=== PATIENT | female | born 1940 | race Caucasian/White ===

== ENCOUNTER 2018-01-21 12:47 | Inpatient (IN) | payer MEDICARE, BC ==
[~2018-01-21] VITALS: Ht 162.6 cm; Wt 59.9 kg
--- NOTE | ~2018-01-21 | HP ---
PATIENT: TALIA LOYOLA MEDICAL RECORD: [id number] ACCOUNT: [id number] LOCATION:D.MS [id number] : 44 ADMISSION DATE: 01/21/18 PCP: MOIRA ESPINOSA MD HISTORY AND PHYSICAL EXAMINATION REASON FOR ADMISSION: Shortness of breath and chest pain. HISTORY OF PRESENT ILLNESS: The patient is a 77-year-old female with long-standing history of smoking. She has been smoking less recently. She came to the office last week because of generalized cachexia; poor appetite; increasing shortness of breath with exertion; and dry cough, nonproductive. She was seen last 3 days ago. At that time, she was noted to have a creatinine of 3. Her chest x-ray showed moderate left-sided pleural effusion. She did not want to be hospitalized at that point and was told to hydrate through the weekend as her last creatinine was noted to be 1.5 years ago. She was scheduled for outpatient CT scan of her chest, but was weaker today and was admitted for further testing. She denies fever. She admits to poor appetite and gradual weight loss. PAST MEDICAL HISTORY: Anxiety, essential hypertension, history of herpes zoster, hyperlipidemia, hypothyroidism, GERD, dementia, nicotine addiction, and history of depression. PAST SURGICAL HISTORY: Appendectomy, laparoscopic cholecystectomy, and hysterectomy. She has had orthopedic surgery with bilateral knee ORIFs and on the right times 2, cervical discectomy, left olecranon fracture, lumbar discectomy for lumbar spinal stenosis, recent C6-C7 laminectomy for stenosis, synovial cyst removal, and bunionectomy. She had a left arm graft for crush injury remotely, bilateral cataract surgery, remote myocardial infarction, C6-C7 laminectomy, C5 to T2 posterolateral fusion, C6-7-T1 laminectomy, and synovial cyst removal. FAMILY HISTORY: Father at 73 with CAD. Mother at 73 with CAD and COPD. Brother with coronary artery disease and CABG. HOME MEDICATIONS: Levaquin 500 mg a day, day #5; Proventil HFA two puffs t.i.d. p.r.n. shortness of breath; Symbicort 160 two puffs b.i.d.; omeprazole 40 mg a day; vitamin B12, 1 cc IM monthly; Namenda 10 mg p.o. b.i.d.; famotidine 40 mg p.o. at bedtime; and Wellbutrin XL 150 mg p.o. b.i.d. REVIEW OF SYSTEMS: GENERAL: She has had gradual weight loss over the last year with poor appetite. No fever. HEENT: No new visual change, sinus congestion, or sore throat. RESPIRATORY: Dry cough, nonproductive, with pleuritic pain in her left chest with deep inspiration. No hemoptysis. CARDIAC: No exertional chest pain, claudication, or edema. GASTROINTESTINAL: No nausea, vomiting, swallowing difficulty, dysphagia, change in stools, or blood per rectum. GYNECOLOGIC: No vaginal bleeding. ENDOCRINE: Denies polyuria, polydipsia, heat or cold intolerance. NEUROLOGIC: No history of stroke, but has had declining memory of cognitive type. PSYCHIATRIC: Denies depressed mood. MUSCULOSKELETAL: She has chronic cervical and lumbar back pain. HISTORY AND PHYSICAL [id number] TALIA LOYOLA INTEGUMENT: No recent rash or itching. PHYSICAL EXAMINATION: VITAL SIGNS: Temperature 98.6 Fahrenheit, pulse 80 and regular, respirations are 20, and blood pressure 124/76 with a sat of 96.6% on room air. HEENT: Normocephalic. Eyes are clear with lens implants in both eyes. Sclerae are nonicteric. Palpebral conjunctivae are mildly pale. Oropharynx is unremarkable except for dry mucous membranes. NECK: Shows limited range of motion due to fusion. Minimal pain elicited. No carotid bruits or JVD. CHEST: She has E to A changes and dullness in the left posterior lower lobe. Faint wheeze in the right upper lobe on forced expiration. HEART: Regular rate without MGR. PMI appropriate. BREASTS: Show implants. ABDOMEN: Soft and nontender throughout. Bowel sounds are active. She is wearing a diaper. EXTREMITIES: She has scar over right knee. She has some crepitus in the left knee. No peripheral edema. LYMPH SYSTEM: No adenopathy palpable in the cervical chain, axillary or inguinal chain. NEUROLOGIC: Oriented to person and place, but not to time. Cranial nerves are grossly intact. Gait is somewhat wide based and she has weak quads bilaterally. No gross edema appreciated. INTEGUMENT: No petechia or icterus. LABORATORY DATA: She has white count of 7500 with neutrophil predominance of 82%. H&H is 10 and 28.9 respectively. Chemistry shows sodium of 126, potassium of 3.3, CO2 of 19.3, BUN 45, creatinine of 2.3. TSH is 0.92 and T4 is 8.6. Liver functions are pending. DIAGNOSTIC DATA: Chest x-ray shows large left pleural effusion. ASSESSMENT: 1. Left pleural effusion, concern for malignancy. 2. COPD with exacerbation. 3. Anemia. 4. Cachexia with weight loss. 5. Dementia. 6. Anemia, normocytic. 7. GERD. 8. History of nicotine addiction. PLAN: The patient will be admitted for hydration and correction of electrolyte abnormalities. I will discuss with radiology on CT with and without contrast tomorrow if creatinine is improved. Pulmonary updrafts and supplemental O2 as indicated. Anemia workup. TRANSINT:[id number] Voice Confirmation ID: [id number] DOCUMENT ID: [id number] HISTORY AND PHYSICAL [id number] TALIA LOYOLA TIMOTHY MD at 1705 CC: [id number] DICTATION DATE: 01/21/18 172 CHEF'S ASSISTANT: 01/21/18 1827 ADM IN [facility] [address] [place] [address]
--- NOTE | ~2018-01-21 | MORECARE ---
CASE MANAGEMENT DISCHARGE SUMMARY PATIENT: TALIA LOYOLA UNIT: [id number] ADM DATE: 01/21/18 AGE: 77 : 42 SEX: F ROOM/BED: D.2215 AUTHOR: ROSI SIFUENTES PHYSICIAN: REFERRING PHYSICIAN: MOIRA ESPINOSA MD DATE OF SERVICE: 02/05/18 Discharge Plan Patient Name: TALIA LOYOLA Facility: [facility]:[place] : 1940 Planned Disposition: Home Anticipated Discharge Date: Discharge Date: Expected LOS: Initial Reviewer: [email or web address] Initial Review Date: 01/21/2018 Generated: 02/05/18 2:34 pm Comments DCP- Discharge Planning Updated by [email or web address]: Leatha Nunn on 02/05/18 12:[address] spoke with health care proxy she stated that she would like her to go to the [facility] when she is ready to be discharged. MJ signed with [facility] DCP- Discharge Planning Updated by [id number]: Vanessa Peters on 02/01/18 11:[address] Spoke with Lani Diaz per request concerning discharge planning. She states that she would like patient to go to inpatient rehab at [facility]. States she would like her to be able to go back to her home after rehab (Lani lives across the street from her). Patient nods in agreement to inpatient rehab screen. CM will continue to follow and assist with discharge planning/needs. DCP- Discharge Planning Updated by [email or web address]: Leatha Nunn on 01/22/18 11:[address] Patient Name: TALIA LOYOLA Admission Status: Urgent Accout number: [id number] Admission Date: 01-21-2018 : 1940 Admission Diagnosis: Attending: MOIRA ESPINOSA Current LOS: 1 Anticipated DC Date: Planned Disposition: Home Primary Insurance: MEDICARE A & B Discharge Planning Comments: CM met with patient and healthcare proxy (Alyssa Diaz ) Patient has an apartment but is currently living with her neighbor Alyssa (who is a retired nurse) I asked patient multiple questions and she is pleasantly confused. She is unable to answer some of the questions. She has a cane, walker, shower chair at home. She does have a daughter who lives local, but Alyssa is the one who is her Health Care Proxy. Lani states that she is unable to stay by herself at this point. Alyssa helps her with medications and bathing. I spoke with the patient about inpatient rehab, skilled and home health. She will wait to see what the MD thinks she needs. CM will continue to follow and assist with DC planning as needed Process Engineer: Leatha Nunn DCPIA - Discharge Planning Initial Assessment Updated by [email or web address]: Leatha Nunn on 01/22/18 12:48 pm * Is the patient Alert and Oriented? Yes * How many steps to enter\exit or inside your home? * PCP ZIMBABWEAN * Pharmacy [facility] [address] * Preadmission Environment Other * Other Environment HOME, LIVING WITH A FRIEND RIGHT NOW ALYSSA DIAZ [phone] * ADLs Partial Dependent * Partial ADLs (Assistance needed) Bathing Medication Management * Equipment Cane Rolling Walker Shower Chair * List name and contact numbers for known caregivers / representatives who currently or will assist patient after discharge: ALYSSA DIAZ ([facility]) [phone] * Verbal permission to speak to the caregivers and representatives has been obtained from the patient. Yes * Community resources currently utilized None * Additional services required to return to the preadmission environment? Yes * Can the patient safely return to the preadmission environment? Yes * Has this patient been hospitalized within the prior 30 days at any hospital? No Last DP export: 02/01/18 11:45 Patient Name: TALIA LOYOLA Page [phone] at 1334 All edits/amendments must be made on the electronic document DICTATION DATE: 02/05/18 1334 SUPERVISOR DRIED YEAST: LOREN 02/05/18 1334 RPT#: [id number] DC DATE: STATUS: ADM IN [facility] [address] [place] [address] END OF REPORT
--- NOTE | ~2018-01-21 | MORECARE ---
CASE MANAGEMENT DISCHARGE SUMMARY PATIENT: TALIA LOYOLA UNIT: [id number] ADM DATE: 01/21/18 AGE: 77 : 42 SEX: F ROOM/BED: D.2215 AUTHOR: ROSI SIFUENTES PHYSICIAN: REFERRING PHYSICIAN: MOIRA ESPINOSA MD DATE OF SERVICE: 01/22/18 Discharge Plan Patient Name: TALAI LOYOLA Facility: [facility]:[place] : 1940 Planned Disposition: Home Anticipated Discharge Date: Discharge Date: Expected LOS: Initial Reviewer: [email or web address] Initial Review Date: 01/21/2018 Generated: 01/22/18 1:52 pm DCPIA - Discharge Planning Initial Assessment Updated by [email or web address]: Leatha Nunn on 01/22/18 12:48 pm * Is the patient Alert and Oriented? Yes * How many steps to enter\exit or inside your home? * PCP * Pharmacy [facility] [address] * Preadmission Environment Other * Other Environment HOME, LIVING WITH A FRIEND RIGHT NOW ALYSSA ARELLANO [phone] * ADLs Partial Dependent * Partial ADLs (Assistance needed) Bathing Medication Management * Equipment Cane Rolling Walker Shower Chair * List name and contact numbers for known caregivers / representatives who currently or will assist patient after discharge: ALYSSA ARELLANO ([facility]) [phone] * Verbal permission to speak to the caregivers and representatives has been obtained from the patient. Yes * Community resources currently utilized None * Additional services required to return to the preadmission environment? Yes * Can the patient safely return to the preadmission environment? Yes * Has this patient been hospitalized within the prior 30 days at any hospital? No Last DP export: 01/22/18 11:44 a Patient Name: TALIA LOYOLA Page [id number] at 1253 All edits/amendments must be made on the electronic document DICTATION DATE: 01/22/18 1252 CAMPER ASSEMBLER: LOREN 01/22/18 1252 RPT#: [id number] DC DATE: STATUS: ADM IN [facility] [address] [place] [address] END OF REPORT
--- NOTE | ~2018-01-21 | MORECARE ---
CASE MANAGEMENT DISCHARGE SUMMARY PATIENT: TALIA LOYOLA UNIT: [id number] ADM DATE: 01/21/18 AGE: 77 : 42 SEX: F ROOM/BED: D.2215 AUTHOR: ROSI SIFUENTES PHYSICIAN: REFERRING PHYSICIAN: MOIRA ESPINOSA MD DATE OF SERVICE: 02/08/18 Discharge Plan Patient Name: TALIA LOYOLA Facility: [facility]:[place] : 1940 Planned Disposition: Home Anticipated Discharge Date: Discharge Date: Expected LOS: Initial Reviewer: [email or web address] Initial Review Date: 01/21/2018 Generated: 02/08/18 12:15 pm Comments DCP- Discharge Planning Updated by [email or web address]: Vanessa Peters on 02/08/18 10:[address] I called [facility] and spoke to Stephen concerning usp placement, clinical faxed. I will follow up with Stephen concerning possible discharge today. CM will continue to follow and assist with discharge planning/needs. DCP- Discharge Planning Updated by [email or web address]: Leatha Nunn on 02/05/18 12:[address] spoke with health care proxy she stated that she would like her [place] [facility] [place] [facility] [place] she is ready to be discharged. MJ signed with [facility]- Discharge Planning Updated by [email or web address]: Vanessa Peters on 02/01/18 11:[address] Spoke with Lani Diaz per request concerning discharge planning. She states that she would like patient to go to inpatient rehab at [facility]. States she would like her to be able to go back to her home after rehab (Lani lives across the street from her). Patient nods in agreement to inpatient rehab screen. CM will continue to follow and assist with discharge planning/needs. DCP- Discharge Planning Updated by [email or web address]: Leatha Nunn on 01/22/18 11:[address] Patient Name: TALIA LOYOLA Admission Status: Urgent Accout number: [id number] Admission Date: 01-21-2018 : 1940 Admission Diagnosis: Attending: MOIRA ESPINOSA Current LOS: 1 Anticipated DC Date: Planned Disposition: Home Primary Insurance: MEDICARE A & B Discharge Planning Comments: CM met with patient and healthcare proxy (Alyssa Diaz ) Patient has an apartment but is currently living with her neighbor Alyssa (who is a retired nurse) I asked patient multiple questions and she is pleasantly confused. She is unable to answer some of the questions. She has a cane, walker, shower chair at home. She does have a daughter who lives local, but Alyssa is the one who is her Health Care Proxy. Lani states that she is unable to stay by herself at this point. Alyssa helps her with medications and bathing. I spoke with the patient about inpatient rehab, skilled and home health. She will wait to see what the MD thinks she needs. CM will continue to follow and assist with DC planning as needed Assistant Branch Operations Manager: Leatha Nunn DCPIA - Discharge Planning Initial Assessment Updated by [email or web address]: Leatha Nunn on 01/22/18 12:48 pm * Is the patient Alert and Oriented? Yes * How many steps to enter\exit or inside your home? * PCP KOREAN * Pharmacy [facility] * Preadmission Environment Other * Other Environment HOME, LIVING WITH A FRIEND RIGHT NOW ALYSSA DIAZ [phone] * ADLs Partial Dependent * Partial ADLs (Assistance needed) Bathing Medication Management * Equipment Cane Rolling Walker Shower Chair * List name and contact numbers for known caregivers / representatives who currently or will assist patient after discharge: ALYSSA DIAZ ([facility]) [phone] * Verbal permission to speak to the caregivers and representatives has been obtained from the patient. Yes * Community resources currently utilized None * Additional services required to return to the preadmission environment? Yes * Can the patient safely return to the preadmission environment? Yes * Has this patient been hospitalized within the prior 30 days at any hospital? No Last DP export: 02/05/18 12:41 Patient Name: TALIA LOYOLA Page 58088 at 1115 All edits/amendments must be made on the electronic document DICTATION DATE: 02/08/181113 PRODUCTION ENGINEER: LOREN 02/08/181113 RPT#: [id number] DC DATE: STATUS: ADM IN [facility] [address] [place] [address] END OF REPORT
--- NOTE | ~2018-01-21 | MORECARE ---
CASE MANAGEMENT DISCHARGE SUMMARY PATIENT: TALIA LOYOLA UNIT: [id number] ADM DATE: 01/21/18 AGE: 77 : 42 SEX: F ROOM/BED: D.2215 AUTHOR: ROSI SIFUENTES PHYSICIAN: REFERRING PHYSICIAN: MOIRA ESPINOSA MD DATE OF SERVICE: 02/08/18 Discharge Plan Patient Name: TALIA LOYOLA Facility: [facility]:[place] : 1940 Planned Disposition: Home Anticipated Discharge Date: Discharge Date: Expected LOS: Initial Reviewer: [email or web address] Initial Review Date: 01/21/2018 Generated: 02/08/18 1:01 pm Comments DCP- Discharge Planning Updated by [email or web address]: Vanessa Peters on 02/08/18 10:[address] I SPOKE WITH REBECCA DAVIES AT THE [facility][phone] AND FAXED CLINICAL TO [phone]. REBECCA STATES THEY ARE VERIFYING INSURANCE AT THIS TIME. CM WILL CONTINUE TO FOLLOW AND ASSIST WITH DISCHARGE PLANNING/NEEDS. DCP- Discharge Planning Updated by [email or web address]: Vanessa Peters on 02/08/18 10:[address] I called The [facility] and spoke to Stephen concerning intermediate placement, clinical faxed. I will follow up with Stephen concerning possible discharge today. CM will continue to follow and assist with discharge planning/needs. DCP- Discharge Planning Updated by [email or web address]: Leatha Nunn on 02/05/18 12:[address] spoke with health care proxy she stated that she would like her to go to the [facility] when she is ready to be discharged. MJ signed with [facility] DCP- Discharge Planning Updated by [email or web address]: Vanessa Peters on 02/01/18 11:[address] Spoke with Lani Diaz per request concerning discharge planning. She states that she would like patient to go to inpatient rehab at [facility]. States she would like her to be able to go back to her home after rehab (Lani lives across the street from her). Patient nods in agreement to inpatient rehab screen. CM will continue to follow and assist with discharge planning/needs. DCP- Discharge Planning Updated by [email or web address]: Leatha Nunn on 01/22/18 11:[address] Patient Name: TALIA LOYOLA Admission Status: Urgent Accout number: [id number] Admission Date: 01-21-2018 : 1940 Admission Diagnosis: Attending: MOIRA ESPINOSA Current LOS: 1 Anticipated DC Date: Planned Disposition: Home Primary Insurance: MEDICARE A & B Discharge Planning Comments: CM met with patient and healthcare proxy (Alyssa Diaz ) Patient has an apartment but is currently living with her neighbor Alyssa (who is a retired nurse) I asked patient multiple questions and she is pleasantly confused. She is unable to answer some of the questions. She has a cane, walker, shower chair at home. She does have a daughter who lives local, but Alyssa is the one who is her Health Care Proxy. Lani states that she is unable to stay by herself at this point. Alyssa helps her with medications and bathing. I spoke with the patient about inpatient rehab, skilled and home health. She will wait to see what the MD thinks she needs. CM will continue to follow and assist with DC planning as needed Sql Engineer: Leatha Nunn DCPIA - Discharge Planning Initial Assessment Updated by [email or web address]: Leatha Nunn on 01/22/18 12:48 pm * Is the patient Alert and Oriented? Yes * How many steps to enter\exit or inside your home? * PCP * Pharmacy [facility] [address] * Preadmission Environment Other * Other Environment HOME, LIVING WITH A FRIEND RIGHT NOW ALYSSA DIAZ [phone] * ADLs Partial Dependent * Partial ADLs (Assistance needed) Bathing Medication Management * Equipment Cane Rolling Walker Shower Chair * List name and contact numbers for known caregivers / representatives who currently or will assist patient after discharge: ALYSSA DIAZ ([facility]) [phone] * Verbal permission to speak to the caregivers and representatives has been obtained from the patient. Yes * Community resources currently utilized None * Additional services required to return to the preadmission environment? Yes * Can the patient safely return to the preadmission environment? Yes * Has this patient been hospitalized within the prior 30 days at any hospital? No Last DP export: 02/08/18 10:15 Patient Name: TALIA LOYOLA Page 51264 at 1201 All edits/amendments must be made on the electronic document DICTATION DATE: 02/08/18 120 LABORER PLUMBING: LOREN 02/08/18 120 RPT#: [id number] DC DATE: STATUS: ADM IN [facility] [address] [place] [address] END OF REPORT
--- NOTE | ~2018-01-21 | MORECARE ---
CASE MANAGEMENT DISCHARGE SUMMARY PATIENT: TALIA LOYOLA UNIT: [id number] ADM DATE: 01/21/18 AGE: 77 : 42 SEX: F ROOM/BED: D.9215 AUTHOR: ROSI SIFUENTES PHYSICIAN: REFERRING PHYSICIAN: MOIRA ESPINOSA MD DATE OF SERVICE: 02/08/18 Discharge Plan Patient Name: TALIA LOYOLA Facility: [facility]:[place] : 1940 Planned Disposition: Home Anticipated Discharge Date: Discharge Date: Expected LOS: Initial Reviewer: [email or web address] Initial Review Date: 01/21/2018 Generated: 02/08/18 2:24 pm Comments DCP- Discharge Planning Updated by [email or web address]: Vanessa Peters on 02/08/18 12:[address] Geri called from [facility], she states they have authorization for admission. I called and informed Lani Diaz that they will pick her up around 3-330. Lani will go to [facility] to sign paperwork. I informed primary nurse and discharge nurse. She will discharge today to [facility] skilled (Medicare) bed. DCP- Discharge Planning Updated by [email or web address]: Vanessa Peters on 02/08/18 11:[address] I called and spoke to Lani Diaz (medical proxy) and informed that she had discharge orders and would likely be transferred to [facility]. She understands and agrees with [facility] for skilled therapy. I have faxed the living will and medical proxy to Geri at [facility]. CM will continue to follow and assist with discharge planning/needs. DCP- Discharge Planning Updated by [email or web address]: Vanessa Peters on 02/08/18 10:[address] I SPOKE WITH GERI DAVIES AT THE [facility] #[phone] AND FAXED CLINICAL TO [phone]. GERI STATES THEY ARE VERIFYING INSURANCE AT THIS TIME. CM WILL CONTINUE TO FOLLOW AND ASSIST WITH DISCHARGE PLANNING/NEEDS. DCP- Discharge Planning Updated by [id number]: Vanessa Peters on 02/08/18 10:[address] I called [facility] and spoke to Stephen concerning intermediate placement, clinical faxed. I will follow up with Stephen concerning possible discharge today. CM will continue to follow and assist with discharge planning/needs. DCP- Discharge Planning Updated by [email or web address]: Leatha Nunn on 02/05/18 12:[address] spoke with health care proxy she stated that she would like her to go to the [facility] when she is ready to be discharged. [facility] Updated by [id number]: Vanessa Peters on 02/01/18 11:[address] Spoke with Lani Diaz per request concerning discharge planning. She states that she would like patient to go to inpatient rehab at [facility]. States she would like her to be able to go back to her home after rehab (Lani lives across the street from her). Patient nods in agreement to inpatient rehab screen. CM will continue to follow and assist with discharge planning/needs. DCP- Discharge Planning Updated by [email or web address]: Leatha Nunn on 01/22/18 11:[address] Patient Name: TALIA LOYOLA Admission Status: Urgent Accout number: [id number] Admission Date: 01-21-2018 : 1940 Admission Diagnosis: Attending: MOIRA ESPINOSA Current LOS: 1 Anticipated DC Date: Planned Disposition: Home Primary Insurance: MEDICARE A & B Discharge Planning Comments: CM met with patient and healthcare proxy (Alyssa Diaz ) Patient has an apartment but is currently living with her neighbor Alyssa (who is a retired nurse) I asked patient multiple questions and she is pleasantly confused. She is unable to answer some of the questions. She has a cane, walker, shower chair at home. She does have a daughter who lives local, but Alyssa is the one who is her Health Care Proxy. Lani states that she is unable to stay by herself at this point. Alyssa helps her with medications and bathing. I spoke with the patient about inpatient rehab, skilled and home health. She will wait to see what the MD thinks she needs. CM will continue to follow and assist with DC planning as needed Foundry Manager: Leatha Nunn DCPIA - Discharge Planning Initial Assessment Updated by [email or web address]: Leatha Nunn on 01/22/18 12:48 pm * Is the patient Alert and Oriented? Yes * How many steps to enter\exit or inside your home? * PCP * Pharmacy [facility] [address] * Preadmission Environment Other * Other Environment HOME, LIVING WITH A FRIEND RIGHT NOW ALYSSA DIAZ [phone] * ADLs Partial Dependent * Partial ADLs (Assistance needed) Bathing Medication Management * Equipment Cane Rolling Walker Shower Chair * List name and contact numbers for known caregivers / representatives who currently or will assist patient after discharge: ALYSSA DIAZ ([facility]) [phone] * Verbal permission to speak to the caregivers and representatives has been obtained from the patient. Yes * Community resources currently utilized None * Additional services required to return to the preadmission environment? Yes * Can the patient safely return to the preadmission environment? Yes * Has this patient been hospitalized within the prior 30 days at any hospital? No Coverage Notice Reviewer: [email or web address] Lee Peters Notice Issued Date-Time: 02/08/2018 12:15 Notice Type: IM Discharge Notice Notice Delivered To: Family Member Relationship to Patient: Friend Scientific Informatics Leader Name: LANI DIAZ Delivery Method: PHONE - Phone Sherly Days: Prior Verbal Notification: Recipient Understood Notice: Yes Recipient Signature: Med Rec Note Co-signed by Attending: Coverage Notice Comment: IMM explained, voiced understanding, copy left in room, Last DP export: 02/08/18 11:19 Patient Name: TALIA LOYOLA Page [id number] at 1324 All edits/amendments must be made on the electronic document DICTATION DATE: 02/08/18 1324 WOOD TILE INSTALLER: LOREN 02/08/18 1324 RPT#: [id number] DC DATE: STATUS: ADM IN [facility] [address] [place] [address] END OF REPORT
--- NOTE | ~2018-01-21 | MORECARE ---
CASE MANAGEMENT DISCHARGE SUMMARY PATIENT: TALIA LOYOLA UNIT: [id number] ADM DATE: 01/21/18 AGE: 77 : 42 SEX: F ROOM/BED: D.2215 AUTHOR: BEARDOC PHYSICIAN: REFERRING PHYSICIAN: MOIRA ESPINOSA MD DATE OF SERVICE: 02/08/18 Discharge Plan Patient Name: TALIA LOYOLA Facility: [facility]:[place] : 1940 Planned Disposition: Home Anticipated Discharge Date: Discharge Date: Expected LOS: Initial Reviewer: [email or web address] Initial Review Date: 01/21/2018 Generated: 02/08/18 1:19 pm Comments DCP- Discharge Planning Updated by [email or web address]: Vanessa Peters on 02/08/18 11:[address] I called and spoke to Lani Diaz (medical proxy) and informed that she had discharge orders and would likely be transferred to [facility]. She understands and agrees with [facility] for skilled therapy. I have faxed the living will and medical proxy to Geri at [facility]. CM will continue to follow and assist with discharge planning/needs. DCP- Discharge Planning Updated by [email or web address]: Vanessa Peters on 02/08/18 10:[address] I SPOKE WITH GERI DAVIES AT [facility] #[phone] AND FAXED CLINICAL TO [phone]. GERI STATES THEY ARE VERIFYING INSURANCE AT THIS TIME. CM WILL CONTINUE TO FOLLOW AND ASSIST WITH DISCHARGE PLANNING/NEEDS. DCP- Discharge Planning Updated by [id number]: Vanessa Peters on 02/08/18 10:[address] I called [facility] and spoke to Stephen concerning long term placement, clinical faxed. I will follow up with Stephen concerning possible discharge today. CM will continue to follow and assist with discharge planning/needs. DCP- Discharge Planning Updated by [email or web address]: Leatha Nunn on 02/05/18 12:[address] spoke with health care proxy she stated that she would like her to go to the [facility] when she is ready to be discharged. MJ signed with [facility] DCP- Discharge Planning Updated by [id number]: Vanessa Peters on 02/01/18 11:[address] Spoke with Lani Diaz per request concerning discharge planning. She states that she would like patient to go to inpatient rehab at [facility]. States she would like her to be able to go back to her home after rehab (Lani lives across the street from her). Patient nods in agreement to inpatient rehab screen. CM will continue to follow and assist with discharge planning/needs. DCP- Discharge Planning Updated by [email or web address]: Leatha Nunn on 01/22/18 11:[address] Patient Name: TALIA LOYOLA Admission Status: Urgent Accout number: [id number] Admission Date: 01-21-2018 : 1940 Admission Diagnosis: Attending: MOIRA ESPINOSA Current LOS: 1 Anticipated DC Date: Planned Disposition: Home Primary Insurance: MEDICARE A & B Discharge Planning Comments: CM met with patient and healthcare proxy (Alyssa Diaz ) Patient has an apartment but is currently living with her neighbor Alyssa (who is a retired nurse) I asked patient multiple questions and she is pleasantly confused. She is unable to answer some of the questions. She has a cane, walker, shower chair at home. She does have a daughter who lives local, but Alyssa is the one who is her Health Care Proxy. Lani states that she is unable to stay by herself at this point. Alyssa helps her with medications and bathing. I spoke with the patient about inpatient rehab, skilled and home health. She will wait to see what the MD thinks she needs. CM will continue to follow and assist with DC planning as needed Carriage Feeder: Leatha Nunn DCPIA - Discharge Planning Initial Assessment Updated by [id number]: Leatha Nunn on 01/22/18 12:48 pm * Is the patient Alert and Oriented? Yes * How many steps to enter\exit or inside your home? * PCP [place] * Pharmacy [facility] [address] * Preadmission Environment Other * Other Environment HOME, LIVING WITH A FRIEND RIGHT NOW ALYSSA DIAZ [phone] * ADLs Partial Dependent * Partial ADLs (Assistance needed) Bathing Medication Management * Equipment Cane Rolling Walker Shower Chair * List name and contact numbers for known caregivers / representatives who currently or will assist patient after discharge: ALYSSA DIAZ ([facility]) [phone] * Verbal permission to speak to the caregivers and representatives has been obtained from the patient. Yes * Community resources currently utilized None * Additional services required to return to the preadmission environment? Yes * Can the patient safely return to the preadmission environment? Yes * Has this patient been hospitalized within the prior 30 days at any hospital? No Coverage Notice Reviewer: [email or web address] Lee Peters Notice Issued Date-Time: 02/08/2018 12:15 Notice Type: IM Discharge Notice Notice Delivered To: Family Member Relationship to Patient: Friend Phlebotomist Name: LANI DIAZ Delivery Method: PHONE - Phone Sherly Days: Prior Verbal Notification: Recipient Understood Notice: Yes Recipient Signature: Med Rec Note Co-signed by Attending: Coverage Notice Comment: IMM explained, voiced understanding, copy left in room, Last DP export: 02/08/18 11:01 Patient Name: TALIA LOYOLA Page 35365 at 1219 All edits/amendments must be made on the electronic document DICTATION DATE: 02/08/18 121 SENIOR WRITER: LOREN 02/08/18 1219 RPT#: [id number] DC DATE: STATUS: ADM IN [facility] [address] [place] [address] END OF REPORT
--- NOTE | ~2018-01-21 | MORECARE ---
CASE MANAGEMENT DISCHARGE SUMMARY PATIENT: TALIA LOYOLA UNIT: [id number] ADM DATE: 01/21/18 AGE: 77 : 42 SEX: F ROOM/BED: D.2215 AUTHOR: ROSI SIFUENTES PHYSICIAN: REFERRING PHYSICIAN: MOIRA ESPINOSA MD DATE OF SERVICE: 01/22/18 Discharge Plan Patient Name: TALIA LOYOLA [facility] [facility] 1940 Planned Disposition: Home Anticipated Discharge Date: Discharge Date: Expected LOS: Initial Reviewer: [email or web address] Initial Review Date: 01/21/2018 Generated: 01/22/18 1:44 pm Patient Name: TALIA LOYOLA Page 17029 at 1244 All edits/amendments must be made on the electronic document DICTATION DATE: 01/22/18 1244 REAMING MACHINE OPERATOR FOR PLASTIC: LOREN 01/22/18 1244 RPT#: [id number] DC DATE: STATUS: ADM IN [facility] [address] [place] [address] END OF REPORT
--- NOTE | ~2018-01-21 | MORECARE ---
CASE MANAGEMENT DISCHARGE SUMMARY PATIENT: TALIA LOYOLA UNIT: [id number] ADM DATE: 01/21/18 AGE: 77 : 42 SEX: F ROOM/BED: D.2215 AUTHOR: ROSI SIFUENTES PHYSICIAN: REFERRING PHYSICIAN: MOIRA ESPINOSA MD DATE OF SERVICE: 01/22/18 Discharge Plan Patient Name: TALIA LOYOLA Facility: [facility]:[place] : 1940 Planned Disposition: Home Anticipated Discharge Date: Discharge Date: Expected LOS: Initial Reviewer: [email or web address] Initial Review Date: 01/21/2018 Generated: 01/22/18 2:01 pm Comments DCP- Discharge Planning Updated by [email or web address]: Leatha Nunn on 01/22/18 11:[address] Patient Name: TALIA LOYOLA Admission Status: Urgent Accout number: [id number] Admission Date: 01-21-2018 : 1940 Admission Diagnosis: Attending: MOIRA ESPINOSA Current LOS: 1 Anticipated DC Date: Planned Disposition: Home Primary Insurance: MEDICARE A & B Discharge Planning Comments: CM met with patient and healthcare proxy (Alyssa Diaz ) Patient has an apartment but is currently living with her neighbor Alyssa (who is a retired nurse) I asked patient multiple questions and she is pleasantly confused. She is unable to answer some of the questions. She has a cane, walker, shower chair at home. She does have a daughter who lives local, but Alyssa is the one who is her Health Care Proxy. Lani states that she is unable to stay by herself at this point. Alyssa helps her with medications and bathing. I spoke with the patient about inpatient rehab, skilled and home health. She will wait to see what the MD thinks she needs. CM will continue to follow and assist with DC planning as needed Therapeutic Recreation Assistant: Leatha Nunn DCPIA - Discharge Planning Initial Assessment Updated by [email or web address]: Leatha Nunn on 01/22/18 12:48 pm * Is the patient Alert and Oriented? Yes * How many steps to enter\exit or inside your home? * PCP * Pharmacy [facility] [address] * Preadmission Environment Other * Other Environment HOME, LIVING WITH A FRIEND RIGHT NOW ALYSSA DIAZ [phone] * ADLs Partial Dependent * Partial ADLs (Assistance needed) Bathing Medication Management * Equipment Cane Rolling Walker Shower Chair * List name and contact numbers for known caregivers / representatives who currently or will assist patient after discharge: ALYSSA DIAZ ([facility]) [phone] * Verbal permission to speak to the caregivers and representatives has been obtained from the patient. Yes * Community resources currently utilized None * Additional services required to return to the preadmission environment? Yes * Can the patient safely return to the preadmission environment? Yes * Has this patient been hospitalized within the prior 30 days at any hospital? No Last DP export: 01/22/18 11:53 a Patient Name: TALIA LOYOLA Page 13383 at 1301 All edits/amendments must be made on the electronic document DICTATION DATE: 01/22/18 1300 [employer] FLATBED TRUCK DRIVER: LOREN 01/22/18 1300 RPT#: [id number] DC DATE: STATUS: ADM IN [facility] [address] [place] [address] END OF REPORT
--- NOTE | ~2018-01-21 | MORECARE ---
CASE MANAGEMENT DISCHARGE SUMMARY PATIENT: TALIA LOYOLA UNIT: [id number] ADM DATE: 01/21/18 AGE: 77 : 42 SEX: F ROOM/BED: D.2215 AUTHOR: ROSI SIFUENTES PHYSICIAN: REFERRING PHYSICIAN: MOIRA ESPINOSA MD DATE OF SERVICE: 02/05/18 Discharge Plan Patient Name: TALIA LOYOLA Facility: [facility]:[place] : 1940 Planned Disposition: Home Anticipated Discharge Date: Discharge Date: Expected LOS: Initial Reviewer: [email or web address] Initial Review Date: 01/21/2018 Generated: 02/05/18 2:41 pm Comments DCP- Discharge Planning Updated by [email or web address]: Leatha Nunn on 02/05/18 12:[address] spoke with health care proxy she stated that she would like her to go to the [facility] when she is ready to be discharged. MJ signed with The [facility] DCP- Discharge Planning Updated by [email or web address]: Vanessa Peters on 02/01/18 11:[address] Spoke with Lani Diaz per request concerning discharge planning. She states that she would like patient to go to inpatient rehab at [facility]. States she would like her to be able to go back to her home after rehab (Lani lives across the street from her). Patient nods in agreement to inpatient rehab screen. CM will continue to follow and assist with discharge planning/needs. DCP- Discharge Planning Updated by [email or web address]: Leatha Nunn on 01/22/18 11:[address] Patient Name: TALIA LOYOLA Admission Status: Urgent Accout number: [id number] Admission Date: 01-21-2018 : 1940 Admission Diagnosis: Attending: MOIRA ESPINOSA Current LOS: 1 Anticipated DC Date: Planned Disposition: Home Primary Insurance: MEDICARE A & B Discharge Planning Comments: CM met with patient and healthcare proxy (Alyssa Diaz ) Patient has an apartment but is currently living with her neighbor Alyssa (who is a retired nurse) I asked patient multiple questions and she is pleasantly confused. She is unable to answer some of the questions. She has a cane, walker, shower chair at home. She does have a daughter who lives local, but Alyssa is the one who is her Health Care Proxy. Lani states that she is unable to stay by herself at this point. Alyssa helps her with medications and bathing. I spoke with the patient about inpatient rehab, skilled and home health. She will wait to see what the MD thinks she needs. CM will continue to follow and assist with DC planning as needed Faculty I On Call Medical Assistant: Leatha Nunn DCPIA - Discharge Planning Initial Assessment Updated by [email or web address]: Leatha Nunn on 01/22/18 12:48 pm * Is the patient Alert and Oriented? Yes * How many steps to enter\exit or inside your home? * PCP SRI [place]ANKAN * Pharmacy [facility] [address] * Preadmission Environment Other * Other Environment HOME, LIVING WITH A FRIEND RIGHT NOW ALYSSA DIAZ [phone] * ADLs Partial Dependent * Partial ADLs (Assistance needed) Bathing Medication Management * Equipment Cane Rolling Walker Shower Chair * List name and contact numbers for known caregivers / representatives who currently or will assist patient after discharge: ALYSSA DIAZ ([facility]) [phone] * Verbal permission to speak to the caregivers and representatives has been obtained from the patient. Yes * Community resources currently utilized None * Additional services required to return to the preadmission environment? Yes * Can the patient safely return to the preadmission environment? Yes * Has this patient been hospitalized within the prior 30 days at any hospital? No External Providers External Provider: [facility] Next Contact Date: Service Request Date: Service Type: Resolution: Reviewer: Comments: Last DP export: 02/05/18 12:34 Patient Name: TALIA LOYOLA Page 92095 at 1341 All edits/amendments must be made on the electronic document DICTATION DATE: 02/05/18 1341 SNAPPER ON: LOREN 02/05/18 1341 RPT#: [id number] DC DATE: STATUS: ADM IN [facility] [address] [place] [address] END OF REPORT
--- NOTE | ~2018-01-21 | MORECARE ---
CASE MANAGEMENT DISCHARGE SUMMARY PATIENT: TALIA LOYOLA UNIT: [id number] ADM DATE: 01/21/18 AGE: 77 : 42 SEX: F ROOM/BED: D.2215 AUTHOR: ROSI SIFUENTES PHYSICIAN: REFERRING PHYSICIAN: MOIRA ESPINOSA MD DATE OF SERVICE: 02/01/18 Discharge Plan Patient Name: TALIA LOYOLA Facility: [facility]:[place] : 1940 Planned Disposition: Home Anticipated Discharge Date: Discharge Date: Expected LOS: Initial Reviewer: [email or web address] Initial Review Date: 01/21/2018 Generated: 02/01/18 1:45 pm Comments DCP- Discharge Planning Updated by [id number]: Vanessa Peters on 02/01/18 11:[address] Spoke with Lani Diaz per request concerning discharge planning. She states that she would like patient to go to inpatient rehab at [facility]. States she would like her to be able to go back to her home after rehab (Lani lives across the street from her). Patient nods in agreement to inpatient rehab screen. CM will continue to follow and assist with discharge planning/needs. DCP- Discharge Planning Updated by [email or web address]: Leatha Nunn on 01/22/18 11:[address] Patient Name: TALIA LOYOLA Admission Status: Urgent Accout number: [id number] Admission Date: 01-21-2018 : 1940 Admission Diagnosis: Attending: MOIRA ESPINOSA Current LOS: 1 Anticipated DC Date: Planned Disposition: Home Primary Insurance: MEDICARE A & B Discharge Planning Comments: CM met with patient and healthcare proxy (Alyssa Diaz ) Patient has an apartment but is currently living with her neighbor Alyssa (who is a retired nurse) I asked patient multiple questions and she is pleasantly confused. She is unable to answer some of the questions. She has a cane, walker, shower chair at home. She does have a daughter who lives local, but Alyssa is the one who is her Health Care Proxy. Lani states that she is unable to stay by herself at this point. Alyssa helps her with medications and bathing. I spoke with the patient about inpatient rehab, skilled and home health. She will wait to see what the MD thinks she needs. CM will continue to follow and assist with DC planning as needed Electromechanical Inspector: Leatha Nunn DCPIA - Discharge Planning Initial Assessment Updated by [id number]: Leatha Nunn on 01/22/18 12:48 pm * Is the patient Alert and Oriented? Yes * How many steps to enter\exit or inside your home? * PCP [place]ENGALI * Pharmacy [facility] [address] * Preadmission Environment Other * Other Environment HOME, LIVING WITH A FRIEND RIGHT NOW ALYSSA DIAZ [phone] * ADLs Partial Dependent * Partial ADLs (Assistance needed) Bathing Medication Management * Equipment Cane Rolling Walker Shower Chair * List name and contact numbers for known caregivers / representatives who currently or will assist patient after discharge: ALYSSA DIAZ ([facility]) [phone] * Verbal permission to speak to the caregivers and representatives has been obtained from the patient. Yes * Community resources currently utilized None * Additional services required to return to the preadmission environment? Yes * Can the patient safely return to the preadmission environment? Yes * Has this patient been hospitalized within the prior 30 days at any hospital? No Last DP export: 01/22/18 12:01 p Patient Name: TALIA LOYOLA Page 45422 at 1245 All edits/amendments must be made on the electronic document DICTATION DATE: 02/01/18 124 VEGETABLE HANDLER: LOREN 02/01/18 1245 RPT#: [id number] DC DATE: STATUS: ADM IN [facility] [address] [place] [address] END OF REPORT
--- NOTE | ~2018-01-21 | MORECARE ---
CASE MANAGEMENT DISCHARGE SUMMARY PATIENT: TALIA LOYOLA UNIT: [id number] ADM DATE: 01/21/18 AGE: 77 : 44 SEX: F ROOM/BED: D.6965 AUTHOR: ROSI SIFUENTES PHYSICIAN: REFERRING PHYSICIAN: MOIRA ESPINOSA MD DATE OF SERVICE: 02/08/18 Discharge Plan Patient Name: TALIA LOYOLA Facility: [facility]:[place] : 1940 Planned Disposition: Home Anticipated Discharge Date: Discharge Date: 02/08/2018 Expected LOS: 0 Initial Reviewer: [email or web address] Initial Review Date: 01/21/2018 Generated: 02/08/18 5:19 pm Comments DCP- Discharge Planning Updated by [email or web address]: Vanessa Peters on 02/08/18 12:[address] Geri called from [facility], she states they have authorization for admission. I called and informed Lani Diaz that they will pick her up around 3-330. Lani will go to [facility] to sign paperwork. I informed primary nurse and discharge nurse. She will discharge today to [facility] skilled (Medicare) bed. DCP- Discharge Planning Updated by [email or web address]: Vanessa Peters on 02/08/18 11:[address] I called and spoke to Lani Diaz (medical proxy) and informed that she had discharge orders and would likely be transferred to [facility] SNF. She understands and agrees with [facility] for skilled therapy. I have faxed the living will and medical proxy to Geri at [facility]. CM will continue to follow and assist with discharge planning/needs. DCP- Discharge Planning Updated by [email or web address]: Vanessa Peters on 02/08/18 10:[address] I SPOKE WITH GERI DAVIES AT [phone] AND FAXED CLINICAL TO [phone]. [facility] STATES THEY ARE VERIFYING INSURANCE AT THIS TIME. CM WILL CONTINUE TO FOLLOW AND ASSIST WITH DISCHARGE PLANNING/NEEDS. DCP- Discharge Planning Updated by [id number]: Vanessa Peters on 02/08/18 10:[address] I called [facility] and spoke to Stephen concerning senior living placement, clinical faxed. I will follow up with Stephen concerning possible discharge today. CM will continue to follow and assist with discharge planning/needs. DCP- Discharge Planning Updated by [email or web address]: Leatha Nunn on 02/05/18 12:[address] spoke with health care proxy she stated that she would like her to go to the [facility] when she is ready to be discharged. MJ signed with [facility] DCP- Discharge Planning Updated by [id number]: Vanessa Fran on 02/01/18 11:[address] Spoke with Lani Diaz per request concerning discharge planning. She states that she would like patient to go to inpatient rehab at [facility]. States she would like her to be able to go back to her home after rehab (Lani lives across the street from her). Patient nods in agreement to inpatient rehab screen. CM will continue to follow and assist with discharge planning/needs. DCP- Discharge Planning Updated by [id number]: Leatha Nunn on 01/22/18 11:[address] Patient Name: TALIA LOYOLA Admission Status: Urgent Accout number: [id number] Admission Date: 01-21-2018 : 1940 Admission Diagnosis: Attending: MOIRA ESPINOSA Current LOS: 1 Anticipated DC Date: Planned Disposition: Home Primary Insurance: MEDICARE A & B Discharge Planning Comments: CM met with patient and healthcare proxy (Alyssa Diaz ) Patient has an apartment but is currently living with her neighbor Alyssa (who is a retired nurse) I asked patient multiple questions and she is pleasantly confused. She is unable to answer some of the questions. She has a cane, walker, shower chair at home. She does have a daughter who lives local, but Alyssa is the one who is her Health Care Proxy. Lani states that she is unable to stay by herself at this point. Alyssa helps her with medications and bathing. I spoke with the patient about inpatient rehab, skilled and home health. She will wait to see what the MD thinks she needs. CM will continue to follow and assist with DC planning as needed General Adjuster: Leatha Nunn DCPIA - Discharge Planning Initial Assessment Updated by [email or web address]: Leatha Nunn on 01/22/18 12:48 pm * Is the patient Alert and Oriented? Yes * How many steps to enter\exit or inside your home? * PCP [facility] * Pharmacy [facility] [address] * Preadmission Environment Other * Other Environment HOME, LIVING WITH A FRIEND RIGHT NOW ALYSSA DIAZ [phone] * ADLs Partial Dependent * Partial ADLs (Assistance needed) Bathing Medication Management * Equipment Cane Rolling Walker Shower Chair * List name and contact numbers for known caregivers / representatives who currently or will assist patient after discharge: ALYSSA DIAZ ([facility]) [phone] * Verbal permission to speak to the caregivers and representatives has been obtained from the patient. Yes * Community resources currently utilized None * Additional services required to return to the preadmission environment? Yes * Can the patient safely return to the preadmission environment? Yes * Has this patient been hospitalized within the prior 30 days at any hospital? No Coverage Notice Reviewer: [id number] Lee Peters Notice Issued Date-Time: 02/08/2018 12:15 Notice Type: IM Discharge Notice Notice Delivered To: Family Member Relationship to Patient: Friend Tie Inspector Name: LANI DIAZ Delivery Method: PHONE - Phone Sherly Days: Prior Verbal Notification: Recipient Understood Notice: Yes Recipient Signature: Med Rec Note Co-signed by Attending: Coverage Notice Comment: IMM explained, voiced understanding, copy left in room, Last DP export: 02/08/18 12:24 Patient Name: TALIA LOYOLA Page [id number] at 1619 All edits/amendments must be made on the electronic document DICTATION DATE: 02/08/181618 HEALTH SOCIAL WORK PROFESSOR: LOREN 02/08/18 161 RPT#: [id number] DC DATE:02/08/18 STATUS: DIS IN [facility] [address] [place] [address] END OF REPORT
[~2018-01-21 12:47] MED LIST: ALLERGY RELIEF PO; ASPIRIN EC81 M1 PO; ATROVENT HFA12.9 GM INH; CELEXA20 MG PO; DYAZIDE 37.5/251 CAP PO; ESTRACE1 MG PO; IMDUR30 MG PO; MOBIC7.5 MG PO; MUCUS RELIEF400 MG PO; MULTI-DAY VITAM1 TAB PO; PEPCID40 MG PO; PRAVACHOL40 MG PO; PRILOSEC20 MG PO; SYMBICORT 16010.2 GM INH; VITAMIN B-1000 MCG/M IM; VITAMIN B-12500 MC1 PO; WELLBUTRIN XL150 M1 PO
[2018-01-21] MEDS ORDERED: NAMENDA10 MG PO ×2 (13:19→13:20)
[2018-01-21] MEDS ORDERED: BUPROPION XL150 MG PO (13:19)
[2018-01-21] MEDS ORDERED: TESSALON PERLE100 MG PO (13:20)
[2018-01-21] MEDS ORDERED: OMEPRAZOLE40 MG PO (13:20)
[2018-01-21 13:22] VITALS: BP 124/76; BMI 22.7
[2018-01-21 14:34] LABS: BASOPHILS 0.1 % (0-2); EOSINOPHILS 0.5 % (0-7); HEMATOCRIT 28.9 % (36.0-48.0); IMMATURE GRANULOCYTES 0.3 % (0-5); LYMPHOCYTES 5.6 % (15-50); MCH 31.6 pg (26.0-34.0); MCHC 34.6 g/dL (31.0-37.0); MCV 91.5 fL (80.0-100.0); NEUTROPHILS 82.5 % (40-80); PLATELET COUNT 258 10x3/uL (130-400); RBC 3.16 10x6/uL (4.00-5.40); RDW 13.1 % (11.5-14.5); WBC 7.5 10x3/uL (4.8-10.8)
[2018-01-21 15:02] LABS: ALBUMIN 2.5 g/dL (3.4-5.0); CALCIUM 8.6 mg/dL (8.5-10.1); CARBON DIOXIDE 19.3 mmol/L (21.0-32.0); CREATININE - SERUM 2.3 mg/dL (0.6-1.3); POTASSIUM - SERUM 3.3 mmol/L (3.5-5.1); PROTEIN - SERUM 6.2 g/dL (6.4-8.2); T4 THYROXINE 8.6 ug/dL (4.7-13.3); THYROID STIMULATING HORMONE 0.92 uIU/mL (0.36-3.74)
[2018-01-21 16:33] VITALS: BP 150/75
[2018-01-21 19:56] LABS: APPEARANCE CLEAR (CLEAR); BILIRUBIN NEGATIVE (NEGATIVE); COLOR YELLOW (YELLOW); GLUCOSE NEGATIVE (NEGATIVE); KETONE NEGATIVE (NEGATIVE); NITRITE NEGATIVE (NEGATIVE); PROTEIN NEGATIVE (NEGATIVE); UROBILINOGEN NORMAL (NORMAL)
[2018-01-21 19:57] LABS: BACTERIA MANY /hpf (NONE SEEN); EPITHELIAL CELLS 0-5 /hpf (0-5); RED CELLS - URINE 0-5 /hpf (0-5)
[2018-01-21 20:00] VITALS: BP 130/73
[2018-01-22] VITALS (12 sets, daily range): BP systolic 94–143; BP diastolic 50–77; Ht 162.6 cm; Wt 59.9 kg
[2018-01-22 06:37] LABS: ANION GAP 14.1 mmol/L (8-16); CALCIUM 8.1 mg/dL (8.5-10.1); CARBON DIOXIDE 20.5 mmol/L (21.0-32.0); CREATININE - SERUM 2.1 mg/dL (0.6-1.3); POTASSIUM - SERUM 3.6 mmol/L (3.5-5.1)
[2018-01-22 06:39] LABS: BASOPHILS 0 % (0-2)
[2018-01-22 08:24] LABS: INR 1.01 (0.85-1.17); PROTIME 12.9 SECONDS (11.6-15.0)
[2018-01-22 12:51] LABS: HEMOGLOBIN 8.2 g/dL (12-16); RBC 2.63 10x6/uL (4.00-5.40); WBC 8.7 10x3/uL (4.8-10.8)
[2018-01-22 12:52] LABS: MCH 31.2 pg (26.0-34.0); MCV 91.3 fL (80.0-100.0)
[2018-01-22 12:53] LABS: MCHC 34.2 g/dL (31.0-37.0); PLATELET COUNT 290 10x3/uL (130-400); RDW 13.4 % (11.5-14.5)
[2018-01-22 12:54] LABS: LYMPHOCYTES 5.4 % (15-50); MONOCYTES 11.2 % (2-11); NEUTROPHILS 82.3 % (40-80)
[2018-01-22 12:55] LABS: EOSINOPHILS 0.8 % (0-7); IMMATURE GRANULOCYTES 0.3 % (0-5)
[2018-01-22 13:16] LABS: BASOPHILS 0.1 % (0-2); EOSINOPHILS 0.2 % (0-7); HEMATOCRIT 26.9 % (36.0-48.0); HEMOGLOBIN 9.3 g/dL (12-16); IMMATURE GRANULOCYTES 0.2 % (0-5); LYMPHOCYTES 5.2 % (15-50); MCH 31.4 pg (26.0-34.0); MCHC 34.6 g/dL (31.0-37.0); MCV 90.9 fL (80.0-100.0); MEAN PLATELET VOLUME 8.7 fL (7.4-10.4); MONOCYTES 13.2 % (2-11); NEUTROPHILS 81.1 % (40-80); PLATELET COUNT 251 10x3/uL (130-400); RBC 2.96 10x6/uL (4.00-5.40); RDW 13.2 % (11.5-14.5); WBC 8.1 10x3/uL (4.8-10.8)
[2018-01-22 13:30] LABS: CALCIUM 7.9 mg/dL (8.5-10.1); CARBON DIOXIDE 21.3 mmol/L (21.0-32.0); POTASSIUM - SERUM 3.3 mmol/L (3.5-5.1)
[2018-01-22 17:10] LABS: PROTEIN - BODY FLUID 3.7 G/DL
[2018-01-22 18:25] LABS: MACROPHAGES BF 10 %; MESOTHELIALS BF 65 %; NEUT - BF 8 %
[2018-01-23] VITALS: BP 111/61
[2018-01-23 04:00] VITALS: BP 127/63
[2018-01-23 05:56] LABS: BASOPHILS 0 % (0-2); EOSINOPHILS 0.1 % (0-7); HEMATOCRIT 25.8 % (36.0-48.0); HEMOGLOBIN 8.9 g/dL (12-16); IMMATURE GRANULOCYTES 0.1 % (0-5); LYMPHOCYTES 5.3 % (15-50); MCH 31.6 pg (26.0-34.0); MCHC 34.5 g/dL (31.0-37.0); MCV 91.5 fL (80.0-100.0); MEAN PLATELET VOLUME 8.9 fL (7.4-10.4); MONOCYTES 13.9 % (2-11); NEUTROPHILS 80.6 % (40-80); PLATELET COUNT 261 10x3/uL (130-400); RBC 2.82 10x6/uL (4.00-5.40); RDW 13.4 % (11.5-14.5); WBC 7.4 10x3/uL (4.8-10.8)
[2018-01-23 06:12] LABS: CARBON DIOXIDE 20.6 mmol/L (21.0-32.0); CREATININE - SERUM 1.7 mg/dL (0.6-1.3); POTASSIUM - SERUM 3.6 mmol/L (3.5-5.1)
[2018-01-23 09:06] VITALS: BP 131/56
[2018-01-23 13:14] VITALS: BP 121/64
[2018-01-23 16:35] VITALS: BP 125/59
[2018-01-23 21:32] VITALS: BP 120/63
[2018-01-24 04:55] LABS: BASOPHILS 0.1 % (0-2); EOSINOPHILS 0.1 % (0-7); HEMOGLOBIN 8.9 g/dL (12-16); IMMATURE GRANULOCYTES 0.3 % (0-5); LYMPHOCYTES 3.2 % (15-50); MCH 31.4 pg (26.0-34.0); MCHC 34.2 g/dL (31.0-37.0); MCV 91.9 fL (80.0-100.0); MEAN PLATELET VOLUME 9.1 fL (7.4-10.4); MONOCYTES 6.2 % (2-11); NEUTROPHILS 90.1 % (40-80); PLATELET COUNT 242 10x3/uL (130-400); RBC 2.83 10x6/uL (4.00-5.40); RDW 13.6 % (11.5-14.5)
[2018-01-24 04:56] LABS: WBC 10.5 10x3/uL (4.8-10.8)
[2018-01-24 05:12] LABS: ANION GAP 15.2 mmol/L (8-16); CALCIUM 7.9 mg/dL (8.5-10.1); CREATININE - SERUM 1.4 mg/dL (0.6-1.3)
[2018-01-24 05:19] VITALS: BP 126/71
[2018-01-24 05:24] LABS: POTASSIUM - SERUM 4.2 mmol/L (3.5-5.1)
[2018-01-24 08:30] VITALS: BP 158/71
[2018-01-24 12:45] VITALS: BP 113/63
[2018-01-24 16:16] LABS: ACID FAST SMEAR Negative (()); AFB SPECIMEN PROCESSING Not Indicated (())
[2018-01-24 17:06] VITALS: BP 124/61
[2018-01-24 17:17] LABS: APPEARANCE CLEAR (CLEAR); BILIRUBIN NEGATIVE (NEGATIVE); COLOR YELLOW (YELLOW); GLUCOSE NEGATIVE (NEGATIVE); KETONE NEGATIVE (NEGATIVE); NITRITE NEGATIVE (NEGATIVE); PROTEIN TRACE mg/dL (NEGATIVE); RED CELLS - URINE OCC /hpf (0-5); UROBILINOGEN NORMAL (NORMAL); WHITE CELLS - URINE OCC /hpf (0-5)
[2018-01-24 19:47] VITALS: BP 117/51
[2018-01-25 06:47] LABS: BASOPHILS 0 % (0-2); EOSINOPHILS 0 % (0-7); HEMATOCRIT 26.2 % (36.0-48.0); HEMOGLOBIN 8.8 g/dL (12-16); IMMATURE GRANULOCYTES 0.3 % (0-5); LYMPHOCYTES 1.8 % (15-50); MCH 31.3 pg (26.0-34.0); MCHC 33.6 g/dL (31.0-37.0); MCV 93.2 fL (80.0-100.0); MEAN PLATELET VOLUME 9.3 fL (7.4-10.4); MONOCYTES 4.1 % (2-11); NEUTROPHILS 93.8 % (40-80); PLATELET COUNT 257 10x3/uL (130-400); RBC 2.81 10x6/uL (4.00-5.40)
[2018-01-25 06:48] LABS: WBC 14.1 10x3/uL (4.8-10.8)
[2018-01-25 07:10] LABS: ANION GAP 14.1 mmol/L (8-16); CALCIUM 8.2 mg/dL (8.5-10.1); CREATININE - SERUM 1.4 mg/dL (0.6-1.3); POTASSIUM - SERUM 4.1 mmol/L (3.5-5.1)
[2018-01-25 08:18] VITALS: BP 123/59
[2018-01-25 12:47] VITALS: BP 113/61
[2018-01-25 13:20] LABS: FUNGUS STAIN Final report (())
[2018-01-25 16:57] VITALS: BP 128/67
[2018-01-25 19:44] VITALS: BP 119/49
[2018-01-26 01:05] VITALS: BP 134/72
[2018-01-26 04:45] VITALS: BP 115/58
[2018-01-26 06:15] LABS: BASOPHILS 0 % (0-2); EOSINOPHILS 0.1 % (0-7); HEMATOCRIT 26.8 % (36.0-48.0); HEMOGLOBIN 8.9 g/dL (12-16); IMMATURE GRANULOCYTES 0.3 % (0-5); LYMPHOCYTES 4.4 % (15-50); MCH 31.2 pg (26.0-34.0); MCHC 33.2 g/dL (31.0-37.0); MEAN PLATELET VOLUME 9.2 fL (7.4-10.4); MONOCYTES 8.8 % (2-11); NEUTROPHILS 86.4 % (40-80); PLATELET COUNT 291 10x3/uL (130-400); RBC 2.85 10x6/uL (4.00-5.40); RDW 14.3 % (11.5-14.5); WBC 14.4 10x3/uL (4.8-10.8)
[2018-01-26 06:28] LABS: ANION GAP 13.7 mmol/L (8-16); CALCIUM 8.3 mg/dL (8.5-10.1); CARBON DIOXIDE 20.9 mmol/L (21.0-32.0); CREATININE - SERUM 1.6 mg/dL (0.6-1.3); POTASSIUM - SERUM 4.6 mmol/L (3.5-5.1)
[2018-01-26 09:18] VITALS: BP 129/63
[2018-01-26 12:28] VITALS: BP 131/78
[2018-01-26 16:28] VITALS: BP 155/46
[2018-01-26 20:06] VITALS: BP 141/72
[2018-01-27 04:26] VITALS: BP 158/60
[2018-01-27 06:49] LABS: BASOPHILS 0 % (0-2); EOSINOPHILS 0 % (0-7); HEMATOCRIT 25.8 % (36.0-48.0); HEMOGLOBIN 8.6 g/dL (12-16); IMMATURE GRANULOCYTES 0.3 % (0-5); LYMPHOCYTES 3.6 % (15-50); MCH 31.2 pg (26.0-34.0); MCHC 33.3 g/dL (31.0-37.0); MCV 93.5 fL (80.0-100.0); MEAN PLATELET VOLUME 9.2 fL (7.4-10.4); MONOCYTES 9.8 % (2-11); NEUTROPHILS 86.3 % (40-80); PLATELET COUNT 263 10x3/uL (130-400); RBC 2.76 10x6/uL (4.00-5.40); RDW 14.4 % (11.5-14.5); WBC 13.3 10x3/uL (4.8-10.8)
[2018-01-27 06:54] LABS: ANION GAP 14.2 mmol/L (8-16); CALCIUM 8.5 mg/dL (8.5-10.1); CARBON DIOXIDE 18.8 mmol/L (21.0-32.0); CREATININE - SERUM 1.4 mg/dL (0.6-1.3)
[2018-01-27 09:47] VITALS: BP 141/64
[2018-01-27 13:46] VITALS: BP 139/69
[2018-01-27 16:47] VITALS: BP 119/65
[2018-01-27 21:29] VITALS: BP 146/71
[2018-01-28] VITALS (10 sets, daily range): BP systolic 101–199; BP diastolic 57–94
[2018-01-28 05:26] LABS: BASOPHILS 0 % (0-2); EOSINOPHILS 0 % (0-7); HEMATOCRIT 26.5 % (36.0-48.0); HEMOGLOBIN 8.9 g/dL (12-16); IMMATURE GRANULOCYTES 0.3 % (0-5); LYMPHOCYTES 2.4 % (15-50); MCH 31.4 pg (26.0-34.0); MCHC 33.6 g/dL (31.0-37.0); MCV 93.6 fL (80.0-100.0); MEAN PLATELET VOLUME 9.2 fL (7.4-10.4); MONOCYTES 4.9 % (2-11); NEUTROPHILS 92.4 % (40-80); PLATELET COUNT 266 10x3/uL (130-400); RBC 2.83 10x6/uL (4.00-5.40); RDW 14.3 % (11.5-14.5); WBC 10.4 10x3/uL (4.8-10.8)
[2018-01-28 05:37] LABS: APTT 26.3 SECONDS (22.8-39.4); INR 1.13 (0.85-1.17); PROTIME 14.1 SECONDS (11.6-15.0)
[2018-01-28 07:18] LABS: ANION GAP 15.6 mmol/L (8-16); CALCIUM 8.1 mg/dL (8.5-10.1); CARBON DIOXIDE 20.5 mmol/L (21.0-32.0); CREATININE - SERUM 1.5 mg/dL (0.6-1.3); POTASSIUM - SERUM 5.1 mmol/L (3.5-5.1)
[2018-01-28 12:16] LABS: PROTEIN - BODY FLUID 2.8 G/DL
[2018-01-28 12:31] LABS: MESOTHELIALS BF 69 %; NEUT - BF 26 %
[2018-01-29 00:35] VITALS: BP 151/65
[2018-01-29 05:18] VITALS: BP 134/74
[2018-01-29 07:45] LABS: BASOPHILS 0 % (0-2); EOSINOPHILS 0 % (0-7); HEMATOCRIT 29.1 % (36.0-48.0); HEMOGLOBIN 9.6 g/dL (12-16); IMMATURE GRANULOCYTES 0.3 % (0-5); MCH 31.2 pg (26.0-34.0); MCV 94.5 fL (80.0-100.0); MEAN PLATELET VOLUME 9.3 fL (7.4-10.4); MONOCYTES 3.3 % (2-11); NEUTROPHILS 92.4 % (40-80); PLATELET COUNT 260 10x3/uL (130-400); RBC 3.08 10x6/uL (4.00-5.40); RDW 14.4 % (11.5-14.5)
[2018-01-29 07:47] LABS: WBC 13.1 10x3/uL (4.8-10.8)
[2018-01-29 07:51] LABS: CALCIUM 8.3 mg/dL (8.5-10.1); CREATININE - SERUM 1.6 mg/dL (0.6-1.3)
[2018-01-29 08:24] VITALS: BP 153/70
[2018-01-29 12:04] VITALS: BP 139/61
[2018-01-29 16:44] VITALS: BP 146/68
[2018-01-29 20:08] LABS: ACID FAST SMEAR Negative (()); AFB SPECIMEN PROCESSING Not Indicated (())
[2018-01-29 21:11] VITALS: BP 177/88
[2018-01-30 03:39] VITALS: BP 131/68
[2018-01-30 08:51] VITALS: BP 147/65
[2018-01-30 12:36] VITALS: BP 124/64
[2018-01-30 13:18] LABS: FUNGUS STAIN Final report (())
[2018-01-30 16:52] VITALS: BP 146/85
[2018-01-30 20:00] VITALS: BP 141/63
[2018-01-31 04:00] VITALS: BP 128/71
[2018-01-31 05:24] LABS: BASOPHILS 0 % (0-2); EOSINOPHILS 0 % (0-7); HEMATOCRIT 28.7 % (36.0-48.0); HEMOGLOBIN 9.6 g/dL (12-16); IMMATURE GRANULOCYTES 0.3 % (0-5); LYMPHOCYTES 3.3 % (15-50); MCH 31.2 pg (26.0-34.0); MCHC 33.4 g/dL (31.0-37.0); MCV 93.2 fL (80.0-100.0); MEAN PLATELET VOLUME 9.2 fL (7.4-10.4); MONOCYTES 2.5 % (2-11); NEUTROPHILS 93.9 % (40-80); PLATELET COUNT 230 10x3/uL (130-400); RBC 3.08 10x6/uL (4.00-5.40); RDW 14.1 % (11.5-14.5); WBC 14.2 10x3/uL (4.8-10.8)
[2018-01-31 05:45] LABS: ANION GAP 12.4 mmol/L (8-16); CALCIUM 8.4 mg/dL (8.5-10.1); CARBON DIOXIDE 22.7 mmol/L (21.0-32.0); CREATININE - SERUM 1.4 mg/dL (0.6-1.3); POTASSIUM - SERUM 5.1 mmol/L (3.5-5.1)
[2018-01-31 08:52] VITALS: BP 114/58
[2018-01-31 12:55] VITALS: BP 126/71
[2018-01-31 17:37] VITALS: BP 133/71
[2018-01-31 21:55] VITALS: BP 153/71
[2018-02-01 05:25] LABS: BASOPHILS 0 % (0-2); EOSINOPHILS 0 % (0-7); HEMOGLOBIN 10.1 g/dL (12-16); IMMATURE GRANULOCYTES 0.4 % (0-5); LYMPHOCYTES 2.6 % (15-50); MCH 30.6 pg (26.0-34.0); MCHC 32.6 g/dL (31.0-37.0); MCV 93.9 fL (80.0-100.0); MEAN PLATELET VOLUME 9.4 fL (7.4-10.4); MONOCYTES 2.7 % (2-11); NEUTROPHILS 94.3 % (40-80); PLATELET COUNT 257 10x3/uL (130-400); WBC 12.6 10x3/uL (4.8-10.8)
[2018-02-01 05:48] LABS: ANION GAP 15.4 mmol/L (8-16); CALCIUM 8.6 mg/dL (8.5-10.1); CARBON DIOXIDE 20.8 mmol/L (21.0-32.0); CREATININE - SERUM 1.5 mg/dL (0.6-1.3); POTASSIUM - SERUM 5.2 mmol/L (3.5-5.1)
[2018-02-01 06:37] VITALS: BP 114/79
[2018-02-01 07:56] VITALS: BP 149/89
[2018-02-01 11:56] VITALS: BP 162/72
[2018-02-01 17:17] VITALS: BP 110/76
[2018-02-01 22:08] VITALS: BP 140/64
[2018-02-02 06:00] LABS: BASOPHILS 0 % (0-2); EOSINOPHILS 0 % (0-7); HEMATOCRIT 32.4 % (36.0-48.0); HEMOGLOBIN 10.6 g/dL (12-16); IMMATURE GRANULOCYTES 0.3 % (0-5); LYMPHOCYTES 1.7 % (15-50); MCH 30.7 pg (26.0-34.0); MCHC 32.7 g/dL (31.0-37.0); MCV 93.9 fL (80.0-100.0); MEAN PLATELET VOLUME 9.7 fL (7.4-10.4); MONOCYTES 1.6 % (2-11); NEUTROPHILS 96.4 % (40-80); PLATELET COUNT 233 10x3/uL (130-400); RBC 3.45 10x6/uL (4.00-5.40); WBC 13.3 10x3/uL (4.8-10.8)
[2018-02-02 06:11] VITALS: BP 146/60
[2018-02-02 06:20] LABS: ANION GAP 13.1 mmol/L (8-16); CALCIUM 8.1 mg/dL (8.5-10.1); CARBON DIOXIDE 20.8 mmol/L (21.0-32.0); CREATININE - SERUM 1.5 mg/dL (0.6-1.3); POTASSIUM - SERUM 4.9 mmol/L (3.5-5.1)
[2018-02-02 10:04] VITALS: BP 129/69
[2018-02-02 16:22] VITALS: BP 108/57
[2018-02-02 20:30] VITALS: BP 147/74
[2018-02-03 00:30] VITALS: BP 156/75
[2018-02-03 04:30] VITALS: BP 125/45
[2018-02-03 05:08] LABS: BASOPHILS 0 % (0-2); EOSINOPHILS 0 % (0-7); HEMOGLOBIN 9.9 g/dL (12-16); IMMATURE GRANULOCYTES 0.4 % (0-5); LYMPHOCYTES 0.8 % (15-50); MCH 31.3 pg (26.0-34.0); MCV 94.9 fL (80.0-100.0); MEAN PLATELET VOLUME 10.3 fL (7.4-10.4); NEUTROPHILS 95.8 % (40-80); PLATELET COUNT 196 10x3/uL (130-400); RBC 3.16 10x6/uL (4.00-5.40); RDW 14.2 % (11.5-14.5)
[2018-02-03 06:06] LABS: ANION GAP 16.2 mmol/L (8-16); CARBON DIOXIDE 17.8 mmol/L (21.0-32.0); CREATININE - SERUM 1.4 mg/dL (0.6-1.3)
[2018-02-03 09:15] VITALS: BP 132/61
[2018-02-03 13:00] VITALS: BP 123/70
[2018-02-03 16:50] VITALS: BP 124/65
[2018-02-03 20:00] VITALS: BP 137/64
[2018-02-04] VITALS: BP 151/67
[2018-02-04 05:00] VITALS: BP 136/74
[2018-02-04 05:23] LABS: HEMATOCRIT 33.4 % (36.0-48.0); MCH 31.4 pg (26.0-34.0); MCHC 32.9 g/dL (31.0-37.0); MCV 95.4 fL (80.0-100.0); MEAN PLATELET VOLUME 10.1 fL (7.4-10.4); PLATELET COUNT 232 10x3/uL (130-400); RDW 14.4 % (11.5-14.5); WBC 22.9 10x3/uL (4.8-10.8)
[2018-02-04 05:35] LABS: CALCIUM 8.3 mg/dL (8.5-10.1); CREATININE - SERUM 1.5 mg/dL (0.6-1.3)
[2018-02-04 07:07] LABS: LYMPHOCYTES 5 % (15-50); MONOCYTES 9 % (2-11); NEUTROPHILS 86 % (40-80); PLATELET ESTIMATE NORMAL; ROULEAUX OCC
[2018-02-04 08:39] VITALS: BP 118/64
[2018-02-04 10:11] LABS: FUNGUS MYCOLOGY CULTURE Preliminary report (())
[2018-02-04 12:41] VITALS: BP 108/67
[2018-02-04 14:01] LABS: APPEARANCE HAZY (CLEAR); COLOR YELLOW (YELLOW); SPECIFIC GRAVITY 1.015 (1.005-1.020)
[2018-02-04 14:02] LABS: BACTERIA MODERATE /hpf (NONE SEEN); BILIRUBIN NEGATIVE (NEGATIVE); EPITHELIAL CELLS 0-5 /hpf (0-5); GLUCOSE NEGATIVE (NEGATIVE); KETONE NEGATIVE (NEGATIVE); NITRITE NEGATIVE (NEGATIVE); PROTEIN 1+ mg/dL (NEGATIVE); UROBILINOGEN NORMAL (NORMAL); WHITE CELLS - URINE OCC /hpf (0-5)
[2018-02-04 14:03] LABS: GRANULAR CAST RARE /lpf (NONE SEEN); HYALINE CAST RARE /lpf (NONE SEEN); MUCUS <1+ /lpf (NONE SEEN)
[2018-02-04 19:04] VITALS: BP 119/56
[2018-02-04 20:33] VITALS: BP 120/58
[2018-02-05 02:35] VITALS: BP 134/60
[2018-02-05 05:01] VITALS: BP 138/64
[2018-02-05 07:06] LABS: BASOPHILS 0 % (0-2); EOSINOPHILS 0.1 % (0-7); HEMOGLOBIN 11.2 g/dL (12-16); IMMATURE GRANULOCYTES 0.6 % (0-5); LYMPHOCYTES 5.4 % (15-50); MCH 31.2 pg (26.0-34.0); MCHC 32.9 g/dL (31.0-37.0); MCV 94.7 fL (80.0-100.0); MONOCYTES 4.4 % (2-11); NEUTROPHILS 89.5 % (40-80); PLATELET COUNT 207 10x3/uL (130-400); RBC 3.59 10x6/uL (4.00-5.40); RDW 14.5 % (11.5-14.5); WBC 21.5 10x3/uL (4.8-10.8)
[2018-02-05 07:08] LABS: ALBUMIN 1.8 g/dL (3.4-5.0); ANION GAP 11.4 mmol/L (8-16); BILIRUBIN - DIRECT 0.08 mg/dL (0.00-0.30); BILIRUBIN - INDIRECT 0.52 mg/dL (0.00-1.00); BILIRUBIN - TOTAL 0.6 mg/dL (0.2-1.3); CALCIUM 7.9 mg/dL (8.5-10.1); CARBON DIOXIDE 23.4 mmol/L (21.0-32.0); CREATININE - SERUM 1.3 mg/dL (0.6-1.3); PROTEIN - SERUM 4.7 g/dL (6.4-8.2)
[2018-02-05 07:09] LABS: POTASSIUM - SERUM 4.8 mmol/L (3.5-5.1)
[2018-02-05 08:43] VITALS: BP 140/62
[2018-02-05 11:57] VITALS: BP 130/74
[2018-02-05 17:16] VITALS: BP 124/69
[2018-02-05 21:33] VITALS: BP 157/87
[2018-02-06 01:38] VITALS: BP 148/80
[2018-02-06 04:45] VITALS: BP 112/69
[2018-02-06 08:36] VITALS: BP 140/72
[2018-02-06 12:24] VITALS: BP 112/64
[2018-02-06 20:12] VITALS: BP 115/66
[2018-02-07 01:20] VITALS: BP 124/60
[2018-02-07 04:57] VITALS: BP 154/64
[2018-02-07 06:45] LABS: BASOPHILS 0 % (0-2); EOSINOPHILS 0 % (0-7); HEMATOCRIT 32.1 % (36.0-48.0); HEMOGLOBIN 10.2 g/dL (12-16); IMMATURE GRANULOCYTES 0.4 % (0-5); LYMPHOCYTES 4.8 % (15-50); MCH 31.5 pg (26.0-34.0); MCHC 31.8 g/dL (31.0-37.0); MCV 99.1 fL (80.0-100.0); MONOCYTES 3.9 % (2-11); NEUTROPHILS 90.9 % (40-80); PLATELET COUNT 163 10x3/uL (130-400); RBC 3.24 10x6/uL (4.00-5.40); RDW 15.3 % (11.5-14.5); WBC 20.4 10x3/uL (4.8-10.8)
[2018-02-07 07:19] LABS: ANION GAP 21.1 mmol/L (8-16); CALCIUM 8.1 mg/dL (8.5-10.1); CREATININE - SERUM 1.3 mg/dL (0.6-1.3); POTASSIUM - SERUM 4.9 mmol/L (3.5-5.1)
[2018-02-07 07:20] LABS: CARBON DIOXIDE 15.8 mmol/L (21.0-32.0)
[2018-02-07 08:53] VITALS: BP 106/57
[2018-02-07 12:44] VITALS: BP 140/85
[2018-02-07 16:38] VITALS: BP 107/55
[2018-02-07 20:00] VITALS: BP 115/55
[2018-02-08 04:00] VITALS: BP 101/64
[2018-02-08 05:58] LABS: ANION GAP 14.2 mmol/L (8-16); CALCIUM 8.2 mg/dL (8.5-10.1); CREATININE - SERUM 1.4 mg/dL (0.6-1.3); PHOSPHOROUS 3.6 mg/dL (2.5-4.9); POTASSIUM - SERUM 4.5 mmol/L (3.5-5.1)
[2018-02-08 05:59] LABS: CARBON DIOXIDE 21.3 mmol/L (21.0-32.0)
[2018-02-08 06:02] LABS: BASOPHILS 0 % (0-2); EOSINOPHILS 0 % (0-7); HEMOGLOBIN 10.2 g/dL (12-16); IMMATURE GRANULOCYTES 0.4 % (0-5); LYMPHOCYTES 5.2 % (15-50); MCH 31.4 pg (26.0-34.0); MCHC 32.9 g/dL (31.0-37.0); MCV 95.4 fL (80.0-100.0); MEAN PLATELET VOLUME 10.6 fL (7.4-10.4); MONOCYTES 3.5 % (2-11); NEUTROPHILS 90.9 % (40-80); PLATELET COUNT 211 10x3/uL (130-400); RBC 3.25 10x6/uL (4.00-5.40); WBC 20.1 10x3/uL (4.8-10.8)
[2018-02-08 09:00] VITALS: BP 138/67
[2018-02-08] MEDS ORDERED: BROVANA15 MCG/2 M INH (11:06)
[2018-02-08] MEDS ORDERED: PREDNISONE20 MG PO (11:08)
[2018-02-08] MEDS ORDERED: MEGACE400 MG/10 PO (11:08)
[2018-02-08] MEDS ORDERED: MYCOSTATIN CREA15 GM TOPICAL (11:09)
[2018-02-08] MEDS ORDERED: ATIVAN1 MG PO (11:10)
[2018-02-08] MEDS ORDERED: ALBUTEROL2.5 MG/3 M INH (11:10)
[2018-02-08 12:30] VITALS: BP 107/59
[2018-02-20 12:17] LABS: FUNGUS MYCOLOGY CULTURE Final report (())
== END 2018-02-08 15:49 | DRG 178 ==
LOC: D.MS 12:47
PROVIDERS: Family Medicine; General Practice; Internal Medicine Pulmonary Disease; Radiology Diagnostic Radiology
PROC: 0W9B3ZZ Drainage of Left Pleural Cavity, Percutaneous Approach (ICD-10-PCS; principal; 2018-01-22 13:50)
PROC: 0W9B30Z Drainage of Left Pleural Cavity with Drainage Device, Percutaneous Approach (ICD-10-PCS; 2018-01-28)
DX: J15.6 Pneumonia due to other Gram-negative bacteria (principal); J91.8 Pleural effusion in other conditions classified elsewhere; E87.1 Hypo-osmolality and hyponatremia; J98.11 Atelectasis; R64 Cachexia; J13 Pneumonia due to Streptococcus pneumoniae; I10 Essential (primary) hypertension; E78.5 Hyperlipidemia, unspecified; E03.9 Hypothyroidism, unspecified; K21.9 Gastro-esophageal reflux disease without esophagitis; F03.90 Unspecified dementia, unspecified severity, without behavioral disturbance, psychotic disturbance, mood disturbance, and anxiety; E87.6 Hypokalemia; F17.200 Nicotine dependence, unspecified, uncomplicated; R39.2 Extrarenal uremia

== ENCOUNTER 2018-02-13 00:20 | Emergency (ER) | payer MEDICARE, BC ==
[~2018-02-13] VITALS: Ht 162.6 cm; Wt 65.3 kg
[~2018-02-13 00:20] MED LIST changes: +ALBUTEROL2.5 MG/3 M INH; +ATIVAN1 MG PO; +BROVANA15 MCG/2 M INH; +BUPROPION XL150 MG PO; +MEGACE400 MG/10 PO; +MYCOSTATIN CREA15 GM TOPICAL; +NAMENDA10 MG PO; +OMEPRAZOLE40 MG PO; +PREDNISONE20 MG PO; +TESSALON PERLE100 MG PO
[2018-02-13 00:23] VITALS: Ht 162.6 cm; Wt 65.3 kg
[2018-02-13 01:20] LABS: BASOPHILS 0 % (0-2); EOSINOPHILS 0 % (0-7); HEMATOCRIT 32.8 % (36.0-48.0); HEMOGLOBIN 10.6 g/dL (12-16); IMMATURE GRANULOCYTES 0.4 % (0-5); LYMPHOCYTES 3.8 % (15-50); MCH 31.5 pg (26.0-34.0); MCHC 32.3 g/dL (31.0-37.0); MCV 97.6 fL (80.0-100.0); MONOCYTES 2.1 % (2-11); NEUTROPHILS 93.7 % (40-80); RBC 3.36 10x6/uL (4.00-5.40); RDW 15.2 % (11.5-14.5); WBC 18.9 10x3/uL (4.8-10.8)
[2018-02-13 01:24] LABS: PLATELET COUNT 162 10x3/uL (130-400)
[2018-02-13 01:30] LABS: APTT 23.2 SECONDS (22.8-39.4); INR 1.32 (0.85-1.17); PROTIME 15.8 SECONDS (11.6-15.0)
[2018-02-13 01:36] LABS: ALBUMIN 2.1 g/dL (3.4-5.0); ALKALINE PHOSPHATASE 56 U/L (46-116); ALT (SGPT) 58 U/L (10-68); BILIRUBIN - TOTAL 0.85 mg/dL (0.2-1.3); CALC OSMOLALITY 299 mosm/kg (275-300); CALCIUM 8.6 mg/dL (8.5-10.1); CARBON DIOXIDE 23.3 mmol/L (21.0-32.0); CHLORIDE - SERUM 110 mmol/L (98-107); CREATININE - SERUM 1.8 mg/dL (0.6-1.3); GLUCOSE 77 mg/dL (74-106); POTASSIUM - SERUM 4.4 mmol/L (3.5-5.1); PROTEIN - SERUM 5.6 g/dL (6.4-8.2); SODIUM 144 mmol/L (136-145); UREA NITROGEN 52 mg/dL (7-18); eGFR NON AFRICAN AMERICAN 29 mL/min (90-120)
[2018-02-13 01:52] LABS: CKMB 4.5 U/L (0.0-3.6); CREATINE KINASE 95 UL (21-215)
[2018-02-13 01:57] LABS: TROPONIN-I 0.332 ng/mL (0.000-0.060)
[2018-02-13 05:47] VITALS: BP 119/56
== END 2018-02-13 05:50 | disposition other institution (70) ==
LOC: D.ER 00:20
PROVIDERS: Family Medicine
DX: J44.9 Chronic obstructive pulmonary disease, unspecified (principal); R74.8 Abnormal levels of other serum enzymes; D72.829 Elevated white blood cell count, unspecified; J18.9 Pneumonia, unspecified organism; R00.0 Tachycardia, unspecified; I10 Essential (primary) hypertension; I25.10 Atherosclerotic heart disease of native coronary artery without angina pectoris; K21.9 Gastro-esophageal reflux disease without esophagitis